=== PATIENT | female | born 1990 | race Caucasian/White ===

== ENCOUNTER → 2016-11-06 | Outpatient (CLI) | payer MEDICAID ==
--- NOTE | 2016-11-06 11:23 | DX ---
Thoracic spine, 3 views. History: Injury. Pain. Findings: Thoracic vertebral body alignment is normal, and disk spaces are maintained. No fracture i dentified. Visualized aspects of the chest appear unremarkable. Impression: Negative exam.
== END ==
LOC: FIMAGING 10:46
PROVIDERS: ATTEND Internal Medicine
DX: M54.6 Pain in thoracic spine (principal)

== ENCOUNTER → 2016-12-01 | Outpatient (CLI) | payer MEDICAID | LOC: FIMAGING 14:20 | PROVIDERS: ATTEND Internal Medicine | DX: M54.6 Pain in thoracic spine (principal) ==

== ENCOUNTER → 2018-06-10 | Outpatient (CLI) | payer MEDICAID | LOC: FIMAGING 13:21 | PROVIDERS: ATTEND Internal Medicine | DX: M25.562 Pain in left knee (principal) ==

== ENCOUNTER → 2018-07-09 | Outpatient (CLI) | payer MEDICAID | LOC: FIMAGING 19:20 | PROVIDERS: ATTEND Internal Medicine | DX: G95.0 Syringomyelia and syringobulbia (principal); M79.621 Pain in right upper arm; M79.622 Pain in left upper arm; R20.0 Anesthesia of skin; R20.2 Paresthesia of skin ==

== ENCOUNTER → 2019-02-23 | Outpatient (CLI) | payer MEDICAID | LOC: BMCIMAGING 13:24 ==